=== PATIENT | male | born 1950 | race Hispanic/Latino ===

== ENCOUNTER → 2020-07-31 | Day surgery (SDC) | payer MEDICARE, OTHER ==
[2020-07-28 11:37] LABS: BASOPHILS # (AUTO) 0.1 (0.0-0.1); BASOPHILS % 0.5 % (0.0-1.0); EOSINOPHILS # (AUTO) 0.3 (0.0-0.4); EOSINOPHILS % 2.9 % (0.0-6.0); HEMATOCRIT 32.6 % (38.2-49.6); HEMOGLOBIN 10.7 g/dL (14.0-18.0); LYMPHOCYTES # (AUTO) 1.5 (1.0-3.2); LYMPHOCYTES % 16.6 % (18.0-39.1); MEAN CORPUSCULAR HEMOGLOBIN 29.8 pg (28-32); MEAN CORPUSCULAR HGB CONC 32.8 g/dL (31-35); MEAN CORPUSCULAR VOLUME 90.8 fL (81-99); MONOCYTES # (AUTO) 0.6 (0.2-0.8); NEUTROPHILS # (AUTO) 6.7 (2.1-6.9); NEUTROPHILS % 73.6 % (38.7-80.0); PLATELET COUNT 225 x10e3/uL (140-360); RED BLOOD COUNT 3.59 x10e6/uL (4.3-5.7); RED CELL DISTRIBUTION WIDTH 13.8 % (11.7-14.4)
[2020-07-28 11:54] LABS: ANION GAP 16.5 mmol/L (8-16); CALCIUM 8.5 mg/dL (8.4-10.2); CREATININE, SERUM 5.95 mg/dL (0.72-1.25); POTASSIUM 5.5 mmol/L (3.5-5.1)
--- NOTE | 2020-07-28 12:23 | Diagnostic Imaging Report ---
EXAMINATION: CHEST 2 VIEWS INDICATION: PRE-OP COMPARISON: None FINDINGS: TUBES and LINES: Right IJ tunneled hemodialysis catheter with tip in the mid SVC. LUNGS: Lungs are well inflated. There is no evidence of pneumonia or pulmonary edema. PLEURA: No pleural effusion or pneumothorax. HEART AND MEDIASTINUM: The cardiomediastinal silhouette is unremarkable. BONES AND SOFT TISSUES: No acute osseous lesion. Soft tissues are unremarkable. UPPER ABDOMEN: No free air under the diaphragm. IMPRESSION: No acute thoracic abnormality. Signed by: Dr. Dione Mora MD on 07/28/2020 12:20 PM
[~2020-07-31] MED LIST: ASPIRIN81 MG PO; ATORVASTATIN CA20 MG PO; BUPIVACAINE HCL 0.5% INJ 30 ML VIAL INJ ONE; CALTRATE 600 W1 EACH PO; CLONIDINE HCL0.1 MG PO; FENTANYL CITRATE/PF 100MCG/2 ML INJ ONE; FERROUS SULFAT325 MG PO; FUROSEMIDE40 MG PO; GLIMEPIRIDE2 MG PO; HEPARIN SOD (PORCINE) 1000 UNIT/ML 30ML ONE; LEVOTHYROXINE100 MC1 PO; METOCLOPRAMIDE HCL 10 MG/2ML VIAL ONE; MIDAZOLAM HCL 2 MG/2 ML VIAL ONE; NOVOLOG100 UNIT/1 SC; ONDANSETRON HCL INJ 2MG/ML 2ML 2 MG/ML VIAL ONE; PROPOFOL IV EMULSION 10 MG/ML 20 ML VIAL ONE; PROTAMINE SULFATE 10 MG/ML 5 ML VIAL ONE; SEVOFLURANE INHAL SOLN 250 ML PEN BTL ONE; SODIUM CHLORIDE 0.9% 500ML 500 ML ONE; THROMBIN FOR SOLN 5,000 UNIT VIAL ONE; TYLENOL # 31 EA PO; VANCOMYCIN 1GM/NS 250 ML 250 ML ONE
[2020-07-31 11:41] LABS: ANION GAP 12.8 mmol/L (8-16); CALCIUM 9.2 mg/dL (8.4-10.2); CREATININE, SERUM 4.06 mg/dL (0.72-1.25); POTASSIUM 4.8 mmol/L (3.5-5.1)
[2020-07-31 18:10] VITALS: BP 180/85
--- NOTE | 2020-07-31 23:34 | Operative Report ---
DATE OF PROCEDURE: 07/31/2020 SURGEON: Boogie Jacobs MD PREOPERATIVE DIAGNOSES: End-stage renal failure, need for permanent dialysis access, insulin-dependent diabetes, and hypertension. POSTOPERATIVE DIAGNOSES: End-stage renal failure, need for permanent dialysis access, insulin-dependent diabetes, and hypertension. PROCEDURE: Creation of left radial artery to cephalic vein AV fistula. CONTINUOUS ABSORPTION PROCESS OPERATOR: Nursing staff. ANESTHESIA: General endotracheal. INDICATIONS: This is a 69-year-old man with end-stage renal failure, insulin-dependent diabetes and hypertension, who has started dialysis and now requires permanent dialysis access. Noninvasive mapping suggested that a left upper extremity AV fistula would be his best option. Prior to surgery, I described the operation to him. I told him that the risks of surgery would include , bleeding, infection, heart attack, stroke, pneumonia, prolonged ICU stay, mechanical ventilation, tracheostomy, permanent hand/limb muscle or nerve damage, hand/limb amputation, hand/limb chronic pain, a 10% to 15% chance of the fistula might not mature appropriately and require subsequent revision, further surgery, replacement, etc. The patient stated that he understood, no further questions and wanted to proceed. FINDINGS: Uneventful creation of left radial artery to cephalic vein AV fistula. Arterial inflow and outflow were good. There was an excellent thrill and bruit at the conclusion of surgery. PROCEDURE IN DETAIL: The patient was taken to the operative room on July 31, 2020 and placed supine upon the operating room table. General endotracheal anesthesia was smoothly induced. The left upper extremity was sterilely prepped and draped in the usual fashion using an alcohol prewash and Betadine scrub and solution. Time-out was performed appropriately. Incision was made midway between the radial artery and cephalic vein several centimeters proximal to the wrist. The cephalic vein was dissected from its surrounding tissues. The radial artery was dissected from surrounding tissues at the same level. The patient was systemically heparinized using 1 mg/kg heparin intravenously. The cephalic vein was divided distally. It was dilated using heparinized saline. A 4.0 mm dilator passed easily proximally without any evidence of venous stenosis. Radial artery was controlled proximally and distally. It was opened longitudinally. It accepted a 3.0 mm dilator without difficulty. An end-to-side anastomosis of vein to artery was then performed using two running 7-0 Prolene sutures. Prior to completing the anastomosis, a 2.5 mm dilator passed easily proximally and distally into the radial artery and a 4.0 mm dilator passed easily into the outflow vein. The anastomosis was completed uneventfully. Occluding instruments were removed. The fistula filled promptly. There was an excellent palpable thrill. There was a strong bruit at the conclusion of surgery. A half dose of protamine was administered. There was excellent hemostasis. Local anesthesia was infiltrated. The wound was closed in layers using absorbable suture. Sterile dressings were applied. Sponge, instrument, and needle counts were correct both prior to and after wound closure. Independent search of the operative field by both operating surgeons and nurse revealed no retained instruments or sponges. The patient tolerated the procedure well, was extubated in the operating room and taken to the recovery room in good condition. MD FRANCISCA MyersL/MODL /[id number]
== END | disposition home or self-care (01) ==
LOC: OR 10:47
PROVIDERS: ATTEND Surgery
DX: E11.22 Type 2 diabetes mellitus with diabetic chronic kidney disease (principal); I12.0 Hypertensive chronic kidney disease with stage 5 chronic kidney disease or end stage renal disease; N18.6 End stage renal disease; I44.30 Unspecified atrioventricular block; Z01.810 Encounter for preprocedural cardiovascular examination; Z01.812 Encounter for preprocedural laboratory examination; Z01.818 Encounter for other preprocedural examination; Z11.59 Encounter for screening for other viral diseases; Z79.4 Long term (current) use of insulin; Z79.82 Long term (current) use of aspirin; Z99.2 Dependence on renal dialysis; Z87.891 Personal history of nicotine dependence
CPT/HCPCS: 36415 ×2; 36818; 71046; 80048 ×2; 82948; 85025; 93005; C1713; J1644; J2250; J2405; J2704; J2720; J2765; J3010; J3370; J7040; U0002